=== PATIENT | female | born 1950 | race Hispanic/Latino ===

== ENCOUNTER 2019-12-10 16:37 | Emergency (ER) | payer MEDICARE, BC ==
[~2019-12-10 16:37] MED LIST: Iopamidol-370 76% 500 ML 1 ML ONE
[2019-12-10 17:21] LABS: Bilirubin Negative (Negative); Blood, Urine Trace (Negative); Clarity Hazy (Clear); Glucose, Urine (Dipstick) 100 mg/dL (Negative); Leukocyte Moderate (Negative); Nitrite Negative (Negative); Protein, Urine (Dipstick) Negative (Neg-Trace); Urobilinogen 0.2 mg/dL (Less than 2)
[2019-12-10 17:25] LABS: #Eosinphils 0.1 thou/uL (0.0-0.7); #Lymphocytes 2.3 thou/uL (1.20-3.40); #Monocytes 0.6 thou/uL (0.11-0.59); #Neutrophils 5.8 thou/uL (1.40-6.50); %Basophils 0.1 % (0.0-1.0); %Eosinophils 0.6 % (0.0-10.0); %Lymphocytes 26.2 % (21.0-51.0); %Neutrophils 66.2 % (42.0-75.0); Hemoglobin 14.3 g/dL (12.0-16.0); Mean Corpuscular HGB CONC 34.1 g/dL (32.0-36.0); Mean Corpuscular Hemoglobin 29.3 pg (27.0-31.0); Mean Corpuscular Volume 85.9 fL (78.0-98.0); Mean Platelet Volume 9.4 fL (7.4-10.4); Platelet Count 239 thou/uL (130-400); Red Blood Cell (RBC) Count 4.89 mill/uL (4.20-5.40); White Blood Cell (WBC) Count 8.8 thou/uL (4.8-10.8)
[2019-12-10 17:32] LABS: Bacteria/HPF 2+ HPF (None Seen); RBC/HPF 0-3 HPF (0-3)
[2019-12-10 17:50] LABS: ALT (SGPT) 12 U/L (8-55); AST (SGOT) 16 U/L (5-34); Albumin 4.5 g/dL (3.4-4.8); Alkaline Phosphatase 88 U/L (40-110); Anion Gap 15 mmol/L (10-20); BUN (Urea Nitrogen) 9 mg/dL (9.8-20.1); Bilirubin, Total 0.3 mg/dL (0.2-1.2); Calc. Creatinine Clearance 0 mL/min (70-130); Calcium 9.8 mg/dL (7.8-10.44); Carbon Dioxide 26 mmol/L (23-31); Chloride 99 mmol/L (98-107); Estimated GFR-MDRD 70; Globulin 3.4 g/dL (2.4-3.5); Glucose 211 mg/dL (83-110); Lipase 82 U/L (8-78); Protein, Total 7.9 g/dL (6.0-8.3); Sodium 136 mmol/L (136-145)
--- NOTE | 2019-12-10 18:52 | ULT ---
Ultrasound of [facility] upper quadrant: 12/10/2019 COMPARISON:None available HISTORY:Right upper quadrant pain TECHNIQUE: [facility] FINDINGS:The visualized pancreas is grossly unremarkable. No focal liver lesion or intrahepatic biliary dilatation is noted. The gallbladder wall is mildly thickened, measuring just over 3 mm. However, the gallbladder is contr acted, which likely explains the mild gallbladder wall prominence as there is no pericholecystic fluid, gallstones, or gallbladder sludge. The director paid media does not indicate a positive Horton's sign. The common bile duct measures 3 mm, within normal limits. The right kidney measures 11 cm in craniocaudal dimension and demonstrates no evidence for stone, hyd ronephrosis, or mass lesion. IMPRESSION:No cholelithiasis or right-sided hydronephrosis.
[2019-12-10] MEDS ORDERED: Morphine 4 MG/ML VIAL ONE (21:31)
[2019-12-10] MEDS ORDERED: Ketorolac Tromethamine 30 MG/ML VIAL ONE (21:32)
[2019-12-10] MEDS ORDERED: Ondansetron PF 4 MG/2 ML Vial ONE (21:32)
--- NOTE | 2019-12-10 22:02 | CT ---
CT abdomen and pelvis: 12/10/2019 COMPARISON: None HISTORY: Right lower quadrant pain for one month TECHNIQUE: Axial CT imaging at 5 mm intervals from lung bases through pubic symphysis with IV contras t. Coronal and sagittal reformatted imaging obtained. FINDINGS: The visualized lung bases are unremarkable. No free intraperitoneal air. The liver, gallbladder, spleen, adrenal glands, and kidneys appear grossly unremarkable. The head of the pancreas is mildly prominent but no significant ductal dilatation or discrete mass lesion is noted. This may be within normal limits for this patient. As a conservative measure, a follow-up CT e xamination of the abdomen is advised in 3-6 months. The vascular structures of the abdomen/pelvis appear patent. Limited assessment of the bowel without oral contrast media demonstrates colonic diverticulosis, prim arily left-sided, with no evidence for diverticulitis. The appendix is nonvisualized. No right lower quadrant inflammatory change noted to suggest the presence of acute appendicitis. No lymphadenopathy is apparent within the abdomen/pelvis. No acute osseous abnormality is noted. IMPRESSION: No acute findings. Incidental findings for which follow-up CT examination is advised as d etailed above. CODE T
== END 2019-12-10 23:05 | disposition home or self-care (01) ==
LOC: ERS 16:37
DX: N39.0 Urinary tract infection, site not specified (principal); K86.89 Other specified diseases of pancreas; R11.2 Nausea with vomiting, unspecified; E11.9 Type 2 diabetes mellitus without complications; E78.00 Pure hypercholesterolemia, unspecified; M19.90 Unspecified osteoarthritis, unspecified site; F41.9 Anxiety disorder, unspecified; Z79.899 Other long term (current) drug therapy; Z79.84 Long term (current) use of oral hypoglycemic drugs
CPT/HCPCS: 36415; 74177; 76705; 80053; 81003; 81015; 83690; 85025; 96361; 96374; 96375; J1885; J2270; J2405; Q9967